=== PATIENT | male | born 1940 | race Caucasian/White ===

== ENCOUNTER 2022-04-14 08:52 | Emergency (ER) | payer MEDICARE, OTHER ==
[~2022-04-14] VITALS: Ht 180.3 cm; Wt 88.0 kg
[2022-04-14] MEDS ORDERED: LOSA50 PO (10:06)
[2022-04-14] MEDS ORDERED: ATOR10 PO (10:06)
[2022-04-14] MEDS ORDERED: CHLO25B PO (10:07)
[2022-04-14] MEDS ORDERED: AFRIN15 M6 (11:19)
== END 2022-04-14 11:39 | disposition home or self-care (01) ==
LOC: ER 08:52
DX: S01.511A Laceration without foreign body of lip, initial encounter (principal); S03.2XXA Dislocation of tooth, initial encounter; S60.212A Contusion of left wrist, initial encounter; S00.31XA Abrasion of nose, initial encounter; W19.XXXA Unspecified fall, initial encounter; Z23 Encounter for immunization
CPT/HCPCS: 73100; 90714; A9270

== ENCOUNTER 2023-04-18 13:47 | Emergency (ER) | payer MEDICARE, OTHER ==
[~2023-04-18] VITALS: Ht 180.3 cm; Wt 84.8 kg
[~2023-04-18 13:47] MED LIST: AFRIN15 M6; ATOR10 PO; CHLO25B PO; LOSA50 PO
[2023-04-18] MEDS ORDERED: DORZOLAMIDE-TIM10 ML BOTHEYES (14:10)
[2023-04-18] MEDS ORDERED: KETOROLAC TROMET3 ML BOTHEYES (14:10)
[2023-04-18 14:49] LABS: BASOPHILS ABSOLUTE AUTO 0.06 K/mm3 (0.00-0.23); BASOPHILS PERCENT AUTO 1 % (0-2); EOSINOPHILS ABSOLUTE AUTO 0.49 K/mm3 (0.00-0.68); EOSINOPHILS PERCENT AUTO 7 % (0-6); Hematocrit 36.5 % (37.0-53.0); Hemoglobin 12.4 g/dL (13.5-17.5); IMMATURE GRAN ABSOLUTE AUTO 0.01 K/mm3 (0.00-0.10); IMMATURE GRAN PERCENT AUTO 0 % (0-1); LYMPHOCYTES ABSOLUTE AUTO 1.45 K/mm3 (0.84-5.20); LYMPHOCYTES PERCENT AUTO 21 % (21-46); MONOCYTES ABSOLUTE AUTO 0.55 K/mm3 (0.16-1.47); MONOCYTES PERCENT AUTO 8 % (4-13); Mean Corpuscular Volume 94 fL (80-100); Mean Platelet Volume 10.6 fL (9.1-12.4); NEUTROPHILS ABSOLUTE AUTO 4.28 K/mm3 (1.96-9.15); NEUTROPHILS PERCENT AUTO 63 % (41-73); Platelet Count 243 K/mm3 (150-400); RDW Coefficient Variation 12.2 % (11.7-14.2); RDW Standard Deviation 42.1 fL (35.1-46.3); Red Blood Cell Count 3.87 M/mm3 (4.30-5.90); White Blood Cell Count 6.84 K/mm3 (4.00-11.30)
[2023-04-18 14:59] LABS: Albumin, Blood 3.8 g/dL (3.4-5.0); Albumin/Globulin Ratio 1.1 (0.8-1.8); Bilirubin, Total 0.3 mg/dL (0.1-1.0); Bun/Creatinine Ratio 22.3 (12.0-20.0); Creatinine, Blood 1.03 mg/dL (0.60-1.20); Globulin, Blood 3.6 g/dL (2.2-4.0); Potassium, Blood 3.5 mmol/L (3.5-5.5); Total Protein, Blood 7.4 g/dL (6.4-8.2)
[2023-04-18 17:03] LABS: Source, Urine Clean Catch
[2023-04-18 17:43] LABS: Appearance, Urine Clear (Clear); Bilirubin, Urine Neg (Neg); Blood, Urine Neg (Neg); Glucose Qualitative, Urine Neg (Neg); Ketones, Urine Neg (Neg); Leukocyte Esterase, Urine Neg (Neg); Nitrite, Urine Neg (Neg); Protein, Urine Neg (Neg); Urobilinogen, Urine NORM (Normal)
[2023-04-18 18:20] LABS: Color, Urine Pale Yellow (P-Yellow)
[2023-04-18 18:57] VITALS: BP 122/76
== END 2023-04-18 18:58 | disposition home or self-care (01) ==
LOC: ER 13:47
PROVIDERS: Physician Assistant; Student in an Organized Health Care Education/Training Program
DX: R53.1 Weakness (principal); S60.312A Abrasion of left thumb, initial encounter; M25.562 Pain in left knee; M25.521 Pain in right elbow; W18.30XA Fall on same level, unspecified, initial encounter; Z79.899 Other long term (current) drug therapy
CPT/HCPCS: 70450; 71046; 80053; 81003; 83735; 85025; 93005; 93010; 99284-25

== ENCOUNTER 2023-07-06 10:35 | Day surgery (SDC) | payer MEDICARE, OTHER ==
[~2023-07-06] VITALS: Ht 180.3 cm; Wt 92.2 kg
[~2023-07-06 10:35] MED LIST changes: +DORZOLAMIDE-TIM10 ML BOTHEYES; +KETOROLAC TROMET3 ML BOTHEYES
[2023-07-06] MEDS ORDERED: ASPI81CH PO (12:52)
[2023-07-06] MEDS ORDERED: HYDCHL25 PO (12:53)
[2023-07-06 14:42] VITALS: BP 153/97
== END 2023-07-06 15:02 | disposition home or self-care (01) ==
LOC: ORSCSDS 10:35
PROVIDERS: Otolaryngology
PROC: 0WB3XZX Excision of Oral Cavity and Throat, External Approach, Diagnostic (ICD-10-PCS; principal; 2023-07-06 12:15)
DX: K13.70 Unspecified lesions of oral mucosa (principal); C06.1 Malignant neoplasm of vestibule of mouth; K06.8 Other specified disorders of gingiva and edentulous alveolar ridge; K21.9 Gastro-esophageal reflux disease without esophagitis; K13.21 Leukoplakia of oral mucosa, including tongue; E78.00 Pure hypercholesterolemia, unspecified; I10 Essential (primary) hypertension; Z79.82 Long term (current) use of aspirin; Z79.899 Other long term (current) drug therapy
CPT/HCPCS: 88305; 88342; J0171; J2795; J7120